=== PATIENT | female | born 1970 | race Caucasian/White ===

== ENCOUNTER 2024-09-26 11:19 | Emergency (ER) | payer MEDICAID, SELFPAY ==
[2024-09-26 11:21] VITALS: BMI 31.3
[2024-09-26 11:44] VITALS: BP 133/88; PULSE 88; RESP 18; TEMP 36.6; O2SAT 99
--- NOTE | 2024-09-26 11:49 | XR_ITS ---
Examination: Duplex scan of the lower extremity, unilateral left Date and time of exam: September 26, 2000 2413 hours INDICATIONS: Left lower leg and ankle swelling and pain beginning 5 days ago Technique: Duplex scan of the extremity veins using B-mode/grayscale imaging and Doppler spectral analysis and color flow Attention is directed to internal echogenicity, compression and augmentation involving these veins, color flow assessment, spectral analysis Findings: Major deep venous structures in the extremity demonstrate normal course and caliber. There is no evidence of deep vein thrombosis. Normal color flow and spectral analysis Impression: Negative for DVT..
--- NOTE | 2024-09-26 11:49 | XR_ITS ---
Examination: Foot, left, 3 views Technique: AP, oblique, lateral views foot, 3 views Date and time of exam: September 26, 2024 1203 hours INDICATIONS: Left foot swelling and pain beginning 5 days ago FINDINGS: Moderate osteopenia Old appearing deformity distal aspect proximal phalanx fifth digit No acute fracture Small posterior bony calcaneal spur IMPRESSION: No cortical bone destruction or fracture No opaque foreign body
--- NOTE | 2024-09-26 11:49 | XR_ITS ---
Examination: Left ankle 3 views TECHNIQUE: AP oblique lateral left ankle 3 views INDICATIONS: Ankle swelling beginning 5 days ago FINDINGS: Moderate osteopenia No fracture or dislocation No opaque foreign body No cortical bone destruction 6 mm posterior bony calcaneal spur IMPRESSION: 6 mm posterior bony calcaneal spur
--- NOTE | 2024-09-26 17:17 | EDNOTE_ITS ---
Lower Extremity Injury RME/HPI General Chief Complaint: Ankle/Foot Injury Stated Complaint: LEFT FOOT/ANKLE PAIN Time Seen by Provider: 09/26/24 11:35 Arrival date/time: 09/26/24 11:19 54-year-old female presents to the emergency department complains of left foot and ankle pain patient reports symptoms ongoing for the last few days patient denies any definite injury Limitations: no limitations Related Data Previous Rx's ?Medication ?Instructions ?Recorded ibuprofen 800 mg tablet 800 mg PO TID PRN pain #30 tabs 09/26/24 Allergies Allergy/AdvReac Type Severity Reaction Status Date / Time No Known Allergies Allergy Verified 09/26/24 11:21 Review of Systems Review of Systems Systems Reviewed: All systems reviewed, normal except as documented Constitutional Constitutional: Reports system reviewed and no additional complaints, except as documented, Denies fever(s) and Denies headache(s) Eyes Eyes: Reports system reviewed and no additional complaints, except as documented and Denies blurry vision ENT Ears, Nose, Mouth, and Throat: Reports system reviewed and no additional complaints, except as documented, Denies headache(s), Denies nasal congestion and Denies nasal discharge Cardiovascular Cardiovascular: Reports system reviewed and no additional complaints, except as documented, Denies chest pain and Denies dyspnea Respiratory Respiratory: Reports system reviewed and no additional complaints, except as documented, Denies chest congestion, Denies cough and Denies dyspnea Gastrointestinal Gastrointestinal: Reports system reviewed and no additional complaints, except as documented and Denies abdominal pain Musculoskeletal Musculoskeletal: Reports system reviewed and no additional complaints, except as documented, Reports arthralgias, Denies deformity, Reports joint swelling, Denies numbness, Reports stiffness and Denies tingling Integumentary/Breasts Skin/Breast: Reports system reviewed and no additional complaints, except as documented and Denies rash Neurologic Neurologic: Reports system reviewed and no additional complaints, except as d ocumented, Reports as per HPI, Denies headache(s), Denies numbness and Denies tingling Past Medical History Social History SMOKING STATUS: Current every day smoker ED Exam General Limitations: Present no limitations General appearance: Present alert and in no apparent distress Head Head exam: Present atraumatic Eye Eye exam: Present normal appearance, PERRL and EOMI ENT ENT exam: Present normal exam, normal oropharynx and mucous membranes moist Neck Neck exam: Present normal inspection, full ROM and trachea midline Chest Chest inspection: Present normal inspection and symmetric chest wall rise Respiratory Respiratory exam: Present normal lung sounds bilaterally Cardiovascular Cardiovascular exam: Present regular rate, normal rhythm and normal heart sounds Abdominal Exam Abdominal exam: Present soft and normal bowel sounds Extremities Exam Extremities exam: Present full ROM, tenderness, normal capillary refill and joint swelling; Absent pedal edema or calf tenderness Back Exam Back exam: Present normal inspection and full ROM Neurological Exam Neurological exam: Present alert, oriented X3 and CN II-XII intact Psychiatric Psychiatric exam: Present normal affect and normal mood Skin Skin exam: Present warm, dry, intact and normal color Course Quality Measures none Orders Category Date Time Status US venous doppler LE LT Stat Exams 09/26/24 11:49 Completed XR ankle comp LT min 3V Stat Exams 09/26/24 11:49 Completed XR foot comp LT min 3V Stat Exams 09/26/24 11:49 Completed Vital Signs Vital signs: Vital Signs Temperature 98 F 09/26/24 11:44 Pulse Rate 88 09/26/24 11:44 Respiratory Rate 18 09/26/24 11:44 Blood Pressure 133/88 H 09/26/24 11:44 Pulse Oximetry (%) 99 09/26/24 11:44 Oxygen Delivery Method Room Air 09/26/24 11:44 O2 saturation 99% room air within normal limits Extremity Injury, Lower MDM Narrative MDM Narrative:: 54-year-old female presents to the emergency department complains of left foot and ankle pain patient reports symptoms ongoing for the last few days patient denies any definite injury On exam patient has tenderness and mild swelling to the dorsal aspect of the left foot patient has no redness or warmth X-ray of the left foot as well as left ankle obtained no acute fracture dislocation noted per my interpretation Ultrasound left lower extremity obtained no acute DVT noted Patient was offered crutches and Daniel wrap Patient discharged home in no distress to follow-up with primary care doctor in the next 24 to 48 hours and for any worsening symptoms to return to the ER immediately Patient data External records reviewed:: [facility] previous records Clinical information provided by:: patient Social determinants that could affect healthcare access:: none Patient has the following chronic illnesses:: None How is presenting disease/condition affected by chronic disease/condition?: no chronic disease Evaluation data The following diagnostics were reviewed and interpreted by me:: radiology exam(s) Lab and/or radiology exams considered but not ordered:: Radiology obtain Interpretation Summary: Reviewed by me Medications / Prescriptions Medications or Prescriptions considered but not ordered:: Given Medication administrations:: Given Consultations Consultation(s) initiated? (list below): No Diagnosis Extremity Injury, Lower Differential Diagnosis: ankle sprain and strain and ankle fracture Most likely diagnosis given after review of the tests above:: Foot sprain Admission Indicated Admission indicated?: not indicated Admission Request Was there a request for admission?: No Disposition Plan Disposition Plan: Discharge Discharge Attestation Discharge Attestation: The patient and all family members were given an opportunity to ask questions and understood the discharge instructions. Discharge instructions specifically effects, indications for sooner follow up or return to the emergency department, and the expected course of current diagnosis. Patient condition: Stable Discharge Plan Plan Patient Disposition: HOME (Self Care) Disposition Comment: Stable Prescriptions/Referrals Prescriptions/Med Rec: New ibuprofen 800 mg tablet 800 mg PO TID PRN (Reason: pain) Qty: 30 0RF Referrals: Jovani Triana PA-C [Primary Care Provider] - 09/27/24 Problem List Clinical Impression: Acute pain of left foot Patient/Caregiver Discharge Instructions Education Materials: RICE Additional Instructions: Please follow up with your primary care doctor in the next 24-48hrs for any worsening symptoms return here immediately Print Language: [place] Islander Stand Alone Forms: Linda Award Info., Patient Portal Info Letter DEBORA/THAI Supervising Physician DEBORA/THAI Supervising Physician: Dr Carpenter
== END 2024-09-26 14:14 | disposition home or self-care (01) ==
PROVIDERS: Emergency Provider Emergency Medicine; PCP Physician Assistant Medical
DX: M25.572 Pain in left ankle and joints of left foot (principal); F17.200 Nicotine dependence, unspecified, uncomplicated
CPT/HCPCS: 73610; 73630; 93971; 99284